=== PATIENT | female | born 1995 | race Caucasian/White ===

== ENCOUNTER 2021-10-24 05:55 | Emergency (ER) | payer SELFPAY ==
[2021-10-24 07:12] LABS: ESTIMATED GFR 71 mL/min (>60)
[2021-10-24] MEDS ORDERED: HYDROmorphone 1 MG/ML Syringe IM ONE (07:56)
== END 2021-10-24 08:30 | disposition home or self-care (01) ==
LOC: JD.ED 05:55
DX: R07.89 Other chest pain (principal); K21.9 Gastro-esophageal reflux disease without esophagitis; E66.9 Obesity, unspecified; Z68.39 Body mass index [BMI] 39.0-39.9, adult
CPT/HCPCS: 36415; 71046; 80053; 83735; 84484; 85025; 85379; 93005; 96372; 99285; J1170; 93010; 99284

== ENCOUNTER 2021-11-18 19:23 | Emergency (ER) | payer SELFPAY | END 2021-11-18 20:35 | disposition other institution (70) | LOC: JD.ED 19:23 | DX: K81.0 Acute cholecystitis (principal); E66.9 Obesity, unspecified; Z68.41 Body mass index [BMI] 40.0-44.9, adult | CPT/HCPCS: 790; 96374; 99140; 99284-25 ==

== ENCOUNTER 2021-11-18 20:33 | Observation (INO) | payer SELFPAY ==
[2021-11-18] MEDS ORDERED: Morphine 2 MG/ML SYRINGE IV ONE (21:42)
[2021-11-18] MEDS ORDERED: Piperacillin/Tazobactam 3.375 GM in Sodium Chloride 0.9% 100 ML IV ONE (21:42)
[2021-11-18] MEDS ORDERED: Heparin Sodium 5,000 Units/ML Vial SUBCUT ONE (21:42)
[2021-11-19] MEDS ORDERED: Ondansetron 4 MG/2 ML SDV IV ONE (01:15)
[2021-11-19] MEDS ORDERED: Piperacillin/Tazobactam 3.375 GM in Sodium Chloride 0.9% 100 ML IV ONE (05:33)
[2021-11-19] MEDS ORDERED: Heparin Sodium 5,000 Units/ML Vial SUBCUT ONE (08:00)
[2021-11-19] MEDS ORDERED: Morphine 2 MG/ML SYRINGE IV ONE (10:26)
[2021-11-19] MEDS ORDERED: D5 1/2 NS w/ 20 mEq/L KCl 1,000 ML IV ONE (10:54)
[2021-11-19] MEDS ORDERED: HYDROmorphone 0.5 MG/0.5 ML Syringe IV ONE (14:30)
[2021-11-19] MEDS ORDERED: Lidocaine 1% PF 2 ML SDV INJECT ONE (14:30)
[2021-11-19] MEDS ORDERED: Ketamine 500 mg/10 ML MDV IV ONE (14:30)
[2021-11-19] MEDS ORDERED: Ketorolac 30 MG/ML SDV IVPUSH ONE (14:30)
[2021-11-19] MEDS ORDERED: Dexamethasone 10 MG/ML SDV IV ONE (14:30)
[2021-11-19] MEDS ORDERED: Midazolam 1 MG/ML 2 ML SDV IV ONE (14:30)
[2021-11-19] MEDS ORDERED: Glycopyrrolate 0.2 MG/ML SDV IVPUSH ONE (14:30)
[2021-11-19] MEDS ORDERED: Neostigmine Methylsulfate 10 MG/10 ML MDV IV ONE (14:30)
[2021-11-19] MEDS ORDERED: Rocuronium 50 MG/5 ML Vial IV ONE (14:30)
[2021-11-19] MEDS ORDERED: Propofol 200 MG/20 ML SDV IV ONE (14:30)
[2021-11-19] MEDS ORDERED: fentaNYL 100 MCG/2 ML SDV IV ONE (14:30)
[2021-11-19] MEDS ORDERED: Lidocaine 1% with EPINEPHrine 1:100,000 20 ML MDV INJECT ONE (20:34)
[2021-11-19] MEDS ORDERED: Iopamidol 755 MG/ML 50 ML Bottle IV ONE (20:34)
[2021-11-19] MEDS ORDERED: Bupivacaine 0.5% 30 ML SDV INJECT ONE (20:34)
[2021-11-19] MEDS ORDERED: Ketorolac 15 MG/ML SDV IVPUSH ONE (22:07)
[2021-11-20] MEDS ORDERED: oxyCODONE 5 MG Tab PO ONE (01:25)
[2021-11-20] MEDS ORDERED: Ketorolac 30 MG/ML SDV IVPUSH ONE (04:09)
== END 2021-11-20 12:45 | disposition home or self-care (01) ==
LOC: JD.ZCENSUS 20:33
PROVIDERS: ADMIT Surgery; ATTEND Surgery
DX: K80.10 Calculus of gallbladder with chronic cholecystitis without obstruction (principal); K76.0 Fatty (change of) liver, not elsewhere classified; K21.9 Gastro-esophageal reflux disease without esophagitis; E66.9 Obesity, unspecified; I10 Essential (primary) hypertension; Z86.16 Personal history of COVID-19; Z68.41 Body mass index [BMI] 40.0-44.9, adult
CPT/HCPCS: 47562; 76000; 76705; A9270; J1100; J1170; J1644; J1885; J2250; J2270; J2405; J2543; J2704; J2710; J3010; J3480; J3490; Q9967; 00790; 36415; 80053; 81025; 83690; 83735; 85025; 99140